=== PATIENT | female | born 2000 | race Caucasian/White ===

== ENCOUNTER 2022-05-27 22:58 | Emergency (ER) | payer SELFPAY ==
[2022-05-27 23:06] VITALS: BP 121/81; PULSE 90; RESP 17; TEMP 97.7; BMI 33.3
[2022-05-27] MEDS ORDERED: AMOX TR/POT CLAV 875MG/125MG TABLETS (FP) ONE (23:44)
[2022-05-27] MEDS ORDERED: AMOX TR/POT CLAV 875MG/125MG TABLETS (FP) PO ONE (23:44)
== END 2022-05-28 00:24 | disposition home or self-care (01) ==
LOC: JER 22:58
DX: H66.92 Otitis media, unspecified, left ear (principal); B34.9 Viral infection, unspecified
CPT/HCPCS: 0241U-QW; 99283-25